=== PATIENT | female | born 1965 | race Caucasian/White ===

== ENCOUNTER 2016-09-05 20:21 | Emergency (ER) | payer BC ==
--- NOTE | 2016-09-08 19:05 | ER ---
ADMIT: 09/05/2016 RM/LOC: ER [facility] MR#: [id number] [place], [place] [id number] OSCAR BOLTONDY Marianela [address] [place] [address] Emergency Room Report SEX: F AGE: 50 : 1965 DATE: 09/05/2016 The patient was signed out to me. Please refer to the main T-sheet and the main dictation for the complete history and physical. HISTORY OF PRESENT ILLNESS: The patient is a 50-year-old female, came to the ER with chief complaint of lower suprapubic abdominal pain and also loose stool and she noticed also blood in the toilet bowl, was not sure whether it was from the stool or from the urine. PHYSICAL EXAMINATION: In the ER, the patient had very mild suprapubic tenderness and the rest of the physical examination was noncontributory and the patient had stable vitals too. When I saw the patient, the suprapubic tenderness had been resolved, and the patient states that she has very mild pain, which is deep inside on the suprapubic area and is not increasing with palpation. LABORATORY DATA: The patient's UA was negative for RBC and was normal for white BC, and also the patient's rectal exam was negative for profuse bleeding or gross bleeding and was positive for Hemoccult. Hemoglobin level was 12.7 with white BC of 10,000 and platelets of 222. The patient had mild hypokalemia with potassium of 3.2. Glucose was 139. CRP was 1.1. The patient received K-Dur 40 mEq p.o. At the moment, the patient has no active bleeding and has a stable hemoglobin. The patient's abdominal exam was benign and has no tenderness. ASSESSMENT AND PLAN: The patient is stable to be discharged to home with diagnoses of gastrointestinal bleeding and hypokalemia, mild with return precautions, and advised to follow up with the primary doctor on Wednesday for further followups and treatments. The patient acknowledged she understood the plan and agreed with it and was discharged to home. Blaise Ackerman MD/ jelly JOB #: [id number] CC: Levi Flores MD, Attending Physician Roque Guy MD, Family Physician
== END 2016-09-05 22:00 | disposition home or self-care (01) ==
LOC: ER 20:21
DX: K92.2 Gastrointestinal hemorrhage, unspecified (principal); E87.6 Hypokalemia; E03.9 Hypothyroidism, unspecified; Z79.899 Other long term (current) drug therapy; Z88.0 Allergy status to penicillin; Z90.89 Acquired absence of other organs